=== PATIENT | female | born 1950 | race Caucasian/White ===

== ENCOUNTER 2017-11-13 10:26 | Inpatient (IN) | payer MEDICARE, BC ==
[~2017-11-13] VITALS: Ht 167.6 cm; Wt 80.0 kg
[2017-11-13 10:39] VITALS: BP 116/69; PULSE 77; RESP 12; TEMP 98.2; O2SAT 97
[2017-11-13] MEDS ORDERED: CLON.5 PO (10:39)
[2017-11-13] MEDS ORDERED: OMEP20TA93 PO (10:39)
[2017-11-13] MEDS ORDERED: BUPR150CR PO (10:39)
[2017-11-13] MEDS ORDERED: SODIUM CHLOR 0.9% 1000 ML INJ 1,000 ML IV ONE (11:00)
[2017-11-13] MEDS ORDERED: SODIUM CHLORIDE 0.9% FLUSH 10 ML FLUSH IVF PRN (11:00)
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
[2017-11-13 11:45] VITALS: RESP 18; O2SAT 98
[2017-11-13 11:56] LABS: AUTOMATED NEUTROPHIL # 0.8 TH/MM3 (1.8-7.7); BASOPHIL % 0.8 % (0.0-2.0); EOSINOPHIL # 0.1 TH/MM3 (0-0.4); EOSINOPHIL % 4.7 % (0.0-4.0); HEMATOCRIT 41.1 % (35.0-46.0); HEMOGLOBIN 13.6 GM/DL (11.6-15.3); LYMPH % 33.2 % (9.0-44.0); LYMPHOCYTE # 0.7 TH/MM3 (1.0-4.8); MEAN CELL VOLUME 92.5 FL (80.0-100.0); MEAN CORPUSCULAR HEMOGLOBIN 30.5 PG (27.0-34.0); MEAN PLATELET VOLUME 8.3 FL (7.0-11.0); MONO % 20.8 % (0.0-8.0); MONOCYTE # 0.4 TH/MM3 (0-0.9); NEUT % 40.5 % (16.0-70.0); PLATELET COUNT 196 TH/MM3 (150-450); RED BLOOD COUNT 4.45 MIL/MM3 (4.00-5.30); RED CELL DISTRIBUTION WIDTH 13.9 % (11.6-17.2)
[2017-11-13 12:09] LABS: BILIRUBIN, URINE NEG (NEG); BLOOD, URINE NEG (NEG); GLUCOSE,URINE NEG (NEG); KETONE, URINE NEG (NEG); NITRITE,URINE NEG (NEG); SQUAMOUS EPITHELIAL CELL URINE <1 /hpf (0-5); URINE COLOR Straw (YELLW/STRAW); URINE LEUKOCYTE ESTERASE NEG (NEG)
[2017-11-13 12:10] LABS: PROTHROMBIN TIME - PATIENT 10.2 SEC (9.8-11.6)
[2017-11-13 12:29] LABS: ALBUMIN 3.6 GM/DL (3.4-5.0); AST (GOT) 17 U/L (15-37); BICARBONATE 26.8 MEQ/L (21.0-32.0); BLOOD UREA NITROGEN 10 MG/DL (7-18); CALCIUM 9.3 MG/DL (8.5-10.1); CHLORIDE 107 MEQ/L (98-107); CREATININE 0.95 MG/DL (0.50-1.00); GLOMERULAR FILTRATION RATE 58 ML/MIN (>89); GLUCOSE,RANDOM 81 MG/DL (74-106); SODIUM (NA) 142 MEQ/L (136-145)
[2017-11-13 12:30] LABS: ALT (GPT) 21 U/L (10-53)
[2017-11-13 12:32] LABS: ALKALINE PHOSPHATASE 70 U/L (45-117); TOTAL BILIRUBIN ADULT 0.4 MG/DL (0.2-1.0); TOTAL PROTEIN 7.4 GM/DL (6.4-8.2)
[2017-11-13 12:36] LABS: ACETAMINOPHEN LESS THAN 2.0 MCG/ML (10.0-30.0)
[2017-11-13 12:39] LABS: BANDS 2 % (0-6); BASOPHILS 2 % (0-2); LYMPHOCYTES 41 % (9-44); MONOCYTES 22 % (0-8); NEUTROPHIL # MANUAL DIFF 0.7 TH/MM3 (1.8-7.7); POLYS (SEG NEUTROPHILS) 31 % (16-70)
[2017-11-13 13:10] VITALS: BP 114/84; PULSE 88; RESP 14; O2SAT 98
[2017-11-13 15:18] VITALS: BP 123/74; PULSE 88; RESP 16; O2SAT 96
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
[2017-11-13] MEDS ORDERED: ALUMINUM/MAGNESIUM/SIMETH 30 ML CUP PO PRN (17:15)
[2017-11-13] MEDS ORDERED: MAGNESIUM HYDROXIDE SUSP 30 ML CUP PO PRN (17:15)
[2017-11-13] MEDS ORDERED: ACETAMINOPHEN 325 MG TAB PO PRN (17:15)
[2017-11-13 18:21] VITALS: BP 133/66; PULSE 78; RESP 18; O2SAT 100
[2017-11-13 18:50] VITALS: BP 165/80; PULSE 104; RESP 18; TEMP 97.4; O2SAT 94
[2017-11-14 06:42] VITALS: BP 99/52; PULSE 80; RESP 19; TEMP 98.1; O2SAT 95
[2017-11-14 08:01] LABS: BICARBONATE 25.1 MEQ/L (21.0-32.0); BLOOD UREA NITROGEN 12 MG/DL (7-18); CALCIUM 8.7 MG/DL (8.5-10.1); CHLORIDE 110 MEQ/L (98-107); CHOLESTEROL 143 MG/DL (120-200); CREATININE 0.81 MG/DL (0.50-1.00); GLOMERULAR FILTRATION RATE 70 ML/MIN (>89); GLUCOSE,RANDOM 85 MG/DL (74-106); SODIUM (NA) 143 MEQ/L (136-145); TRIGLYCERIDES 68 MG/DL (42-150)
[2017-11-14 08:03] LABS: CHOLESTEROL/ HDL RATIO 2.66 RATIO; HDL CHOLESTEROL 53.7 MG/DL (40.0-60.0); LDL CHOLESTEROL 76 MG/DL (0-99)
[2017-11-14] MEDS ORDERED: hydrOXYzine HCL 50 MG TAB PO PRN (11:30)
[2017-11-14] MEDS ORDERED: diphenhydrAMINE HCL 50 MG CAP PO PRN (11:30)
--- NOTE | 2017-11-14 11:50 | HHI.HP ---
Provisional Diagnosis Admission Date Nov 13, 2017 at 17:21 [place] I. Major depressive disorder recurrent severe without psychosis Certification of Person's Competence To Provide Express and Informed Consent I have personally examined Charlotte Franco , a person being served at [facility] on, Nov 14, 2017 11:34. Express and informed consent means consent voluntarily given in writing, by a competent person, after sufficient explanation and disclosure of the subject matter involved to enable the person to make a knowing and willful decision without any element of force, fraud, deceit, duress, or other form of constraint or coercion. This person is 18 years of age or older, is not now known to be incompetent to consent to treatment with a guardian advocate, and does not have a health care surrogate or proxy currently making medical treatment decisions. I have found this person to be one of the following: [xxx] Competent to provide express and informed consent, as defined above, for voluntary admission to this facility and is competent to provide express and informed consent for treatment. He/she has the consistent capacity to make well reasoned, willful, and knowing decisions concerning his or her medical or mental health treatment. The person fully and consistently understands the purpose of the admission for examination/placement and is fully capable of personally exercising all rights assured [place] Incompetent to provide express and informed consent to voluntary admission, and this is incompetent to provide express and informed consent to treatment. The person must be transferred to involuntary status and a petition for a guardian advocate filed with the Circuit Court. [] Refusing to provide express and informed consent to voluntary admission but is competent to provide express and informed consent for treatment. The person must be discharged or transferred to involuntary status. Form shall be completed within 24 hours of a person's arrival at the receiving facility and filed in the clinical record of each person: 1. Admitted on a voluntary basis 2. Permitted to provide express and informed consent to his/her own treatment 3. Allowed to transfer from involuntary to voluntary status 4. Prior to permitting a person to consent to his or her own treatment after having been previously found incompetent to consent to treatment. History of Present Illness Capacity: Has Capacity Psych Chief Complaint: Patient depressed with suicide attempt HPI Patient is a 67-year-old white female who comes here under a Puente act by the [facility] Department dated 11/13/2017 at 0930 a.m. that document reviewed essentially states Charlotte advice she took 10 Klonopin in an attempt to end her life was unable to determine if examination is necessary. Patient seen and screened in the ED and toxicology negative blood alcohol level negative. At the present time patient laying quietly in her bed on 2500 counselor Blanche present throughout session. Patient is alert oriented white female appears about her stated age. Stating she lives with her of 48 years. That she does want a divorce now. She states he did have a heart attack and heart transplant in the since then his behavior has changed he has chronic medical issues, he basically stays in the house watches TV and he spends her money and everything from [place] to guns and knives to gain this and automobiles. This is caused her to become more depressed. She states in the past 3-4 months she has had increased initial and mid insomnia with a.m. energy , some decreased concentration and attention, her irritability is focused mainly on her , she denies voices or visions with this, she acknowledges suicide attempt. She denies any prior suicide attempts. She denies any alcohol or drug use with this. She states she has seen a psychiatrist but they live in the [facility] but has found no acceptable clinician down here. She denies any prior psychiatric hospitalization. She denies any past physical or sexual abuse. She does not have any children. She has a older sister who lives in the [place] area that she is close to. Patient does wish to get help. Though it appears she is showing very little interest in trying to salvage her relationship with her . At the present time patient meets criteria for further inpatient psychiatric hospitalization and stabilization. Though I feel she does have capacity thus I will lift the Puente act allow her to sign voluntary. We will continue her Wellbutrin that has been ordered for her we will add Abilify 5 mg in the morning. We will have the hospitalist consult with us also. Hopeless be fairly short stay for this lady with possible placement issues or perhaps relocation Review of Systems Constitutional: DENIES: Diaphoretic episodes, Fatigue, Fever, Weight gain, Weight loss, Chills, Dizziness, Change in appetite, Night Sweats Endocrine: DENIES: Abnorml menstrual pattern, Heat/cold intolerance, Polydipsia , Polyuria, Polyphagia Eyes: DENIES: Blurred vision, Diplopia, Eye inflammation, Eye pain, Vision loss , Photosensitivity, Double Vision Ears, nose, mouth, throat: DENIES: Tinnitus, Hearing loss, Vertigo, Nasal discharge, Oral lesions, Throat pain, Hoarseness, Ear Pain, Running Nose, Epistaxis, Sinus Pain, Toothache, Odynophagia Respiratory: DENIES: Apneas, Cough, Snoring, Wheezing, Hemoptysis, Sputum production, Shortness of breath Cardiovascular: DENIES: Chest pain, Palpitations, Syncope, Dyspnea on Exertion , PND, Lower Extremity Edema, Orthopnea, Claudication Gastrointestinal: DENIES: Abdominal pain, Black stools, Bloody stools, Constipation, Diarrhea, Nausea, Vomiting, Difficulty Swallowing, Anorexia Genitourinary: DENIES: Abnormal vaginal bleeding, Dysmenorrhea, Dyspareunia, Sexual dysfunction, Urinary frequency, Urinary incontinence, Urgency, Hematuria , Dysuria, Nocturia, Vaginal discharge Musculoskeletal: COMPLAINS OF: Joint pain (History of plantar fasciitis), DENIES: Muscle aches, Stiffness, Joint Swelling, Back pain, Neck pain Integumentary: DENIES: Abnormal pigmentation, Pruritus, Rash, Nail changes, Breast masses, Breast skin changes, Nipple discharge Hematologic/lymphatic: DENIES: Bruising, Lymphadenopathy Immunologic/allergic: DENIES: Eczema, Urticaria Neurologic: DENIES: Abnormal gait, Headache, Localized weakness, Paresthesias, Seizures, Speech Problems, Tremor, Poor Balance Psychiatric: COMPLAINS OF: Anxiety, Depression, Suicidal Ideation (Patient denies today) Past Psych History Psychological trauma history Patient denies Violence risk - others (6 mos) Low Violence risk - self (6 mos) Low to moderate Substance Abuse History Drugs/Alcohol past 12 months Patient denies Past Family Social History Coded Allergies: No Known Allergies (Unverified , 11/13/17) Reported Medications Bupropion HCl ER 12 HR (Wellbutrin SR 12 HR) 150 Mg Tab, 150 MG PO Q12HR for Control Depression, TAB 0 Refills 11/13/17 Omeprazole (Omeprazole) 20 Mg Tab, 20 MG PO DAILY, #30 TAB 0 Refills 11/13/17 Clonazepam (Klonopin) 0.5 Mg Tab, 0.5 MG PO BID, #60 TAB 0 Refills 11/13/17 Current Medications Medications (Trade) Dose Ordered Sig/Laurence Route Start Time Stop Time Status Last Admin (NS Flush) 2 ml UNSCH PRN IVF 11/13/17 11:00 (Tylenol) 650 mg Q4H PRN PO 11/13/17 17:15 (Milk Of Magnesia Liq) 30 ml DAILY PRN PO 11/13/17 17:15 (Mag-Al Plus Susp Liq) 30 ml Q6H PRN PO 11/13/17 17:15 Family Psych History Patient denies Social History Patient lives with of 48 years, they have no children Patient's Strengths (min. 2) Patient verbal able access healthcare Physical Exam Patient medically cleared ED at the present time patient sitting quietly in the room she is in no acute distress, no complaints chest pain, no respiratory distress, no complaints of abdominal pain. Patient moving all 4 extremities without difficulty Vital Signs Vital Signs Date Time Temp Pulse Resp B/P (MAP) Pulse Ox O2 Delivery O2 Flow Rate FiO2 11/14/17 06:42 98.1 80 19 99/52 (68) 95 11/13/17 18:21 Room Air 11/13/17 11:45 2.00 Lab Results Test 11/14/17 07:02 Blood Urea Nitrogen 12 MG/DL Creatinine 0.81 MG/DL Random Glucose 85 MG/DL Calcium Level 8.7 MG/DL Sodium Level 143 MEQ/L Potassium Level 3.6 MEQ/L Chloride Level 110 MEQ/L Carbon Dioxide Level 25.1 MEQ/L Anion Gap 8 MEQ/L Estimat Glomerular Filtration Rate 70 ML/MIN Triglycerides Level 68 MG/DL Cholesterol Level 143 MG/DL LDL Cholesterol 76 MG/DL HDL Cholesterol 53.7 MG/DL Cholesterol/HDL Ratio 2.66 RATIO Mental Status Examination Appearance: Disheveled (Mildly) Consciousness: Alert Orientation: Person, Place, Date/Time Motor Activity: Other (Patient laying in bed unable to ascertain moves all 4 extremities) Speech: Unremarkable Language: Perseveration Fund of Knowledge: Adequate Attention and Concentration: Easily Distracted Memory: Impaired Mood: Sad Affect: Other (Decreased range and intensity) Thought Process & Associations: Intact Thought Content: Appropriate Hallucination Type: None Delusion Type: None Suicidal Ideation: Yes (Guns and knives in the home. Patient denies today) Suicidal Plan: Yes (Patient denies today) Suicidal Intention: Yes Homicidal Ideation: No Homicidal Plan: No Homicidal Intention: No Insight: Adequate Judgment: Adequate Assessment & Plan Problem List: (1) Major depressive disorder, recurrent severe without psychotic features ICD Codes: F33.2 - Major depressive disorder, recurrent severe without psychotic features Assessment & Plan Estimated LOS: days patient continues depressed though denying suicidality, she medication adjustments above. The stomach feel patient does have capacity I will allow her to sign voluntary Discharge Planning To be determined Request HC Surrog/Guard Advoc?: No Timbo Mccullough MD Nov 14, 2017 11:50
[2017-11-14] MEDS: buPROPion HCL 150 MG SUSTAINED RELEASE TAB PO SCH ×3 (12:36→20:49)
--- NOTE | 2017-11-14 14:29 | PD.CONS ---
[facility] Reason for Consult [facility] medical management Primary Care Physician Unknown Diagnoses: History of Present Illness Patient is a 67-year-old female with past medical history of anxiety, depression , hyperlipidemia, GERD who came into the hospital for suicidal attempt, Puente acted for taking 10 tablets of 0.5 mg of Klonopin. She is now admitted to inpatient psychiatry and for further evaluation. Consulted for assistance with medical management. Patient seen and examined today. Patient states that she did what she did because she was unhappy with her not leaving the house that she paid for. Patient has multiple complaints including her Wellbutrin that she wanted to be an XL. States that she does not take any other medication except for cholesterol which she follows with back to her PCP. Patient demands that she uses a cell phone rather than the regular phone and the unit. Discussed with patient unit policy and she could talk about it with the psychiatrist. Otherwise, denies pain and discomfort. Denies SOB/ dyspnea. Denies chest pain , palpitations, headaches, dizziness. Denies fevers, chills, n/v/d. Denies hematuria, dysuria. Review of Systems Except as stated in HPI: all other systems reviewed are Neg Past Family Social History Allergies: Coded Allergies: No Known Allergies (Unverified , 11/13/17) Past Medical History Anxiety Depression Hyperlipidemia GERD Past Surgical History Ectopic Left knee surgery Reported Medications Reported Meds & Active Scripts Active Reported Wellbutrin SR 12 HR (Bupropion HCl) 150 Mg Tab 150 Mg PO Q12HR Omeprazole 20 Mg Tab 20 Mg PO DAILY Klonopin (Clonazepam) 0.5 Mg Tab 0.5 Mg PO BID Active Ordered Medications Current Medications Medications (Trade) Dose Ordered Sig/Laurence Route Start Time Stop Time Status Last Admin (NS Flush) 2 ml UNSCH PRN IVF 11/13/17 11:00 (Tylenol) 650 mg Q4H PRN PO 11/13/17 17:15 (Milk Of Magnesia Liq) 30 ml DAILY PRN PO 11/13/17 17:15 (Mag-Al Plus Susp Liq) 30 ml Q6H PRN PO 11/13/17 17:15 (Benadryl) 50 mg HS PRN PO 11/14/17 11:30 (Atarax) 50 mg Q6H PRN PO 11/14/17 11:30 (Wellbutrin Sr) 150 mg Q12HR PO 11/14/17 11:30 11/14/17 12:36 (Protonix) 20 mg DAILY PO 11/15/17 09:00 (Abilify) 5 mg DAILY PO 11/15/17 09:00 Family History Mother father have heart disease, both are Social History Denies alcohol use Denies tobacco use Denies illicit drug Physical Exam Vital Signs Vital Signs Date Time Temp Pulse Resp B/P (MAP) Pulse Ox O2 Delivery O2 Flow Rate FiO2 11/14/17 06:42 98.1 80 19 99/52 (68) 95 11/13/17 18:50 97.4 104 18 165/80 (108) 94 11/13/17 18:49 11/13/17 18:21 78 18 133/66 (88) 100 Room Air 11/13/17 15:18 88 16 123/74 (90) 96 Room Air Physical Exam GENERAL: This is a overweight, well-developed patient, in no apparent distress. SKIN: Cool and dry. HEAD: Normocephalic. EYES: Pupils equal round and reactive. Extraocular motions intact. No scleral icterus. No injection or drainage. ENT: Nose without bleeding. Throat without erythema. Uvula midline. Airway patent. NECK: Trachea midline. CARDIOVASCULAR: Regular rate and rhythm without murmurs, gallops, or rubs. RESPIRATORY: Clear to auscultation. Breath sounds equal bilaterally. No wheezes , rales, or rhonchi. GASTROINTESTINAL: Abdomen soft, non-tender, nondistended. Bowel sounds active 4. MUSCULOSKELETAL: Extremities without clubbing, cyanosis, or edema. NEUROLOGICAL: Awake and alert. Oriented to person. Motor and sensory grossly within normal limits. Normal speech. Laboratory Laboratory Tests Test 11/14/17 07:02 Blood Urea Nitrogen 12 Creatinine 0.81 Random Glucose 85 Calcium Level 8.7 Sodium Level 143 Potassium Level 3.6 Chloride Level 110 Carbon Dioxide Level 25.1 Anion Gap 8 Estimat Glomerular Filtration Rate 70 Triglycerides Level 68 Cholesterol Level 143 LDL Cholesterol 76 HDL Cholesterol 53.7 Cholesterol/HDL Ratio 2.66 Result Diagram: 11/13/17 1107 11/14/17 0702 Assessment and Plan Assessment and Plan Patient is a 67-year-old female with past medical history of anxiety, depression , hyperlipidemia, GERD who came into the hospital for suicidal attempt, Cindi acted for taking 10 tablets of 0.5 mg of Klonopin. She is now admitted to inpatient psychiatry and for further evaluation. Consulted for assistance with medical management. Suicidal ideation, attempt Anxiety, depression -Managed by psychiatry Hyperlipidemia -Lipid panel check within normal -Medication reconciliation per nursing. May restart home medication. GERD -Pantoprazole daily Leukopenia, elevated mono -Repeat CBC. May follow-up with hematology as an outpatient. DVT prop ambulatory Thank you for this consultation. Labs have been reviewed, mostly within normal. We will sign off . Repeat CBC. Follow up with hematology in outpatient. Code Status Full code Discussed Condition With Patient, nurse Yoko Dale Nov 14, 2017 14:29
[2017-11-14 16:34] VITALS: BP 120/63; PULSE 87; RESP 18; TEMP 98.2; O2SAT 99
[2017-11-14 16:37] LABS: HEMOGLOBIN A1C 5.5 % (4.3-6.0)
--- NOTE | 2017-11-14 17:46 | EKG ---
Date Performed: 11/13/2017 Time Performed: 11:42:03 PTAGE: 67 years EKG: Sinus rhythm MARKED LEFT AXIS DEVIATION INCOMPLETE RIGHT BUNDLE BRANCH BLOCK ABNORMAL ECG NO PREVIOUS TRACING DOCTOR: Josy Velasquez Interpretating Date/Time 11/14/2017 17:45:15
[2017-11-15 06:37] VITALS: BP 119/64; PULSE 80; RESP 16; TEMP 97.6; O2SAT 93
[2017-11-15] MEDS: buPROPion HCL 150 MG SUSTAINED RELEASE TAB PO SCH (09:00)
[2017-11-15] MEDS ORDERED: PANTOPRAZOLE SOD 20 MG DELAYED RELEASE TAB PO SCH (09:00)
[2017-11-15] MEDS ORDERED: ARIPiprazole 5 MG TAB PO SCH (09:00)
[2017-11-15 09:18] LABS: HEMATOCRIT 42.4 % (35.0-46.0); MEAN CELL VOLUME 91.7 FL (80.0-100.0); MEAN CORPUSCULAR HEMOGLOBIN 30.3 PG (27.0-34.0); MEAN PLATELET VOLUME 7.6 FL (7.0-11.0); PLATELET COUNT 232 TH/MM3 (150-450); RED BLOOD COUNT 4.62 MIL/MM3 (4.00-5.30); RED CELL DISTRIBUTION WIDTH 14.2 % (11.6-17.2)
--- NOTE | 2017-11-15 11:21 | HHI.DS ---
Psychiatry Discharge Summary Inpatient Psychiatric care?: Yes Advance Directive: No Reason Not Provided: PT IS UNCOOPERATIVE Mental Health AdvanceDirective: No Health Care Proxy: No Admission Admission Date Nov 13, 2017 at 17:21 Admission Diagnosis: (1) Major depressive disorder, recurrent severe without psychotic features ICD Code: F33.2 - Major depressive disorder, recurrent severe without psychotic features Brief History Patient is a 67-year-old white female who comes here under a Puente act by the [facility]'s Department dated 11/13/2017 at 0930 a.m. that document reviewed essentially states Charlotte advice she took 10 Klonopin in an attempt to end her life was unable to determine if examination is necessary. Patient seen and screened in the ED and toxicology negative blood alcohol level negative. At the present time patient laying quietly in her bed on 2500 counselor Blanche present throughout session. Patient is alert oriented white female appears about her stated age. Stating she lives with her of 48 years. That she does want a divorce now. She states he did have a heart attack and heart transplant in the since then his behavior has changed he has chronic medical issues, he basically stays in the house watches TV and he spends her money and everything from [employer] to guns and knives to gain this and automobiles. This is caused her to become more depressed. She states in the past 3-4 months she has had increased initial and mid insomnia with a.m. energy , some decreased concentration and attention, her irritability is focused mainly on her , she denies voices or visions with this, she acknowledges suicide attempt. She denies any prior suicide attempts. She denies any alcohol or drug use with this. She states she has seen a psychiatrist but they live in the [facility] but has found no acceptable clinician down here. She denies any prior psychiatric hospitalization. She denies any past physical or sexual abuse. She does not have any children. She has a older sister who lives in the [place] area that she is close to. Patient does wish to get help. Though it appears she is showing very little interest in trying to salvage her relationship with her . At the present time patient meets criteria for further inpatient psychiatric hospitalization and stabilization. Though I feel she does have capacity thus I will lift the Puente act allow her to sign voluntary. We will continue her Wellbutrin that has been ordered for her we will add Abilify 5 mg in the morning. We will have the hospitalist consult with us also. Hopeless be fairly short stay for this lady with possible placement issues or perhaps relocation Tobacco Use In Past 30 Days: Refused To Answer Alcohol Use: Never Hospital Course Patient's hospital course was uneventful, patient had some reservations about restarting her Wellbutrin that he has done that. At this time she denies suicidality homicidality voices or visions. He is able contract to do no harm. That she felt a little dizzy after taking the Abilify in the evening. She wishes to be descriptive. At this time patient longer meets criteria for inpatient psychiatric hospitalization. She does wish to be discharged. Less I will discharge patient today to herself with no Rx by me, patient has sufficient Wellbutrin at home. And we will refer patient to the clinician and counselor in the community that accepts her insurance Results Blood Pressure 119 / 64 Vital Signs Date Time Temp Pulse Resp B/P (MAP) Pulse Ox O2 Delivery O2 Flow Rate FiO2 11/15/17 06:37 97.6 80 16 119/64 (82) 93 11/13/17 18:21 Room Air 11/13/17 11:45 2.00 Laboratory Tests Test 11/13/17 11:07 11/14/17 07:02 11/15/17 08:49 White Blood Count 2.0 TH/MM3 (4.0-11.0) 3.0 TH/MM3 (4.0-11.0) Monocytes (%) (Auto) 20.8 % (0.0-8.0) Eosinophils (%) (Auto) 4.7 % (0.0-4.0) Neutrophils # (Auto) 0.8 TH/MM3 (1.8-7.7) Lymphocytes # (Auto) 0.7 TH/MM3 (1.0-4.8) Monocytes % 22 % (0-8) Neutrophils # (Manual) 0.7 TH/MM3 (1.8-7.7) Estimat Glomerular Filtration Rate 58 ML/MIN (>89) 70 ML/MIN (>89) Salicylates Level LESS THAN 1.7 MG/DL Acetaminophen Level LESS THAN 2.0 MCG/ML Chloride Level 110 MEQ/L (98-107) Laboratory Results Test 11/14/17 07:02 Cholesterol Level 143 MG/DL (120-200) HDL Cholesterol 53.7 MG/DL (40.0-60.0) Hemoglobin A1c 5.5 % (4.3-6.0) LDL Cholesterol 76 MG/DL (0-99) Triglycerides Level 68 MG/DL (42-150) Summary of Procedures None done Pending results at discharge: No Medications # of Antipsychotic meds at D/C: 0 Approp Antipsych med options 1 - Minimum of three failed multiple trials of monotherapy. 2 - Documented plan to taper to monotherapy due to previous use of multiple meds OR cross-taper in progress at D/C. 3 - Documentation of augmentation of Clozapine. 4 - Justification other than those listed in allowable values 1-3, document here : Discharge Discharge Date: Nov 15, 2017 Discharge Diagnosis: (1) Major depressive disorder, recurrent severe without psychotic features Diagnosis: Principal ICD Code: F33.2 - Major depressive disorder, recurrent severe without psychotic features Pt Condition on Discharge: Stable Discharge Disposition: Discharge Home Discharge Instructions Diet Instructions: As Tolerated, No Restrictions Activities you can perform: Regular-No Restrictions Scheduled Appointment: Advanced Nursing Services Discharge Time > 30 minutes Mental Status Examination Appearance: Disheveled (Mildly) Consciousness: Alert Orientation: Person, Place, Date/Time Motor Activity: Other (Patient laying in bed unable to ascertain moves all 4 extremities) Speech: Unremarkable Language: Perseveration Fund of Knowledge: Adequate Attention and Concentration: Easily Distracted Memory: Impaired Mood: Sad Affect: Other (Decreased range and intensity) Thought Process & Associations: Intact Thought Content: Appropriate Hallucination Type: None Delusion Type: None Suicidal Ideation: Yes (Guns and knives in the home. Patient denies today) Suicidal Plan: Yes (Patient denies today) Suicidal Intention: Yes Homicidal Ideation: No Homicidal Plan: No Homicidal Intention: No Insight: Adequate Judgment: Adequate Discharge/Advance Care Plan Health Problems: (1) Major depressive disorder, recurrent severe without psychotic features Goals to promote your health * To prevent worsening of your condition and complications * To maintain your health at the optimal level Directions to meet your goals Take your medications as prescribed Follow your dietary instruction Follow activity as directed Keep your appointments as scheduled Take your immunizations and boosters as scheduled If your symptoms worsen call your PCP, if no PCP go to Urgent Care Center or Emergency Room For 17/12 questions related to your inpatient stay or results of tests pending at discharge, please contact Dr. Timbo Mccullough at Smoking is Dangerous to Your Health. Avoid second hand smoking Timbo Mccullough MD Nov 15, 2017 11:21
== END 2017-11-15 15:00 | disposition home or self-care (01) | DRG 885 ==
LOC: NEPE 10:26 → NEDA 17:21 → H250 18:49
PROVIDERS: ADMIT Psychiatry & Neurology Psychiatry; ATTEND Psychiatry & Neurology Psychiatry
DX: F33.2 Major depressive disorder, recurrent severe without psychotic features (principal); E78.5 Hyperlipidemia, unspecified; F41.9 Anxiety disorder, unspecified; D72.819 Decreased white blood cell count, unspecified; K21.9 Gastro-esophageal reflux disease without esophagitis; Z91.5 Personal history of self-harm
CPT/HCPCS: 80048; 80053; 80061; 80307; 81001; 83036; 83930; 85007; 85027; 85610; 85730; 93005; 96360; J7030